=== PATIENT | female | born 1960 | race Caucasian/White ===

== ENCOUNTER 2019-08-29 22:44 | Emergency (ER) | payer SELFPAY ==
[~2019-08-29] VITALS: Ht 58 cm; Wt 57.6 kg
[2019-08-29] MEDS ORDERED: KETOROLAC 30 MG/ML VIAL IVP STA (23:15)
[2019-08-29] MEDS ORDERED: ACYCLOVIR 400 MG TABLET (ZOVIRAX) PO SCH (23:15)
[2019-08-29] MEDS: NS IV 1000 ML 1,000 ML IV SCH ×2 (23:20→23:22)
--- NOTE | 2019-08-29 23:33 | ED General ---
General Stated Complaint: LT SIDED PELVIC PAIN Source of Information: Patient History of Present Illness Date Seen by Provider: Aug 29, 2019 Time Seen by Provider: 22:55 Initial Comments PT ARRIVES VIA EMS FROM [facility] PT WITH MULTIPLE COMPLAINTS C/O NON-PRODUCTIVE COUGH SINCE YESTERDAY HAD SUBJECTIVE FEVER LAST PM PT HAS BEEN TAKING ADVIL PLUS ALEVE EVERY 3 HOURS SINCE YESTERDAY C/O LEFT FLANK PAIN, RADIATING TO LEFT GROIN AND INTO GENITAL AREA--PT'S MAIN COMPLAINT--SINCE YESTERDAY NO PROBLEMS URINATING OR HEMATURIA NO NAUSEA/VOMITING/DIARRHEA NO CHEST PAIN OR SHORTNESS OF BREATH NO PALPITATIONS NO DIZZINESS OR SYNCOPE NO HEADACHE NO BODY ACHES NO NASAL CONGESTION NO SORE THROAT PT STATES SHE LIVES IN [place], AND FLEW FROM [place] YESTERDAY, TO [place]--WENT TO [facility] [place] [facility] [employer] PICKED HER UP LAST NIGHT OR TODAY FROM [place] IN A RENTAL CAR, AND DROVE HERE 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 PT HAS HISTORY OF LUPUS, R.A., ASTHMA, HTN AND HEART DISEASE. PT STATES SHE STARTED VAPING 3 MONTHS AGO, CLAIMS SHE DID NOT SMOKE PRIOR TO THAT PT HAS HISTORY OF METH USE, CLAIMS NO IV USE OR RECENT USE. STATES SHE HAD PNEUMONIA WITH SEPSIS AND WAS ON VENTILATOR FOR 2 WEEKS, A COUPLE OF YEARS AGO Allergies and Home Medications Allergies Coded Allergies: CLEMENTE Inhibitors (Verified Allergy, Intermediate, Shortness of Breath, 08/29/19) Home Medications Azithromycin 500 Mg Tablet, 500 MG PO DAILY Prescribed by: PRIETO WOLFF on 08/30/19121 Nitrofurantoin Monohyd/M-Cryst 100 Mg Capsule, 1 TAB PO BID Prescribed by: PRIETO WOLFF on 08/30/19121 Pregabalin 75 Mg Capsule, 75 MG PO BID Prescribed by: PRIETO WOLFF on 08/30/19123 Valacyclovir HCl 1,000 Mg Tablet, 1,000 MG PO TID Prescribed by: PRIETO WOLFF on 08/30/19121 Patient Home Medication List Home Medication List Reviewed: Yes Review of Systems Review of Systems Constitutional: see HPI; No chills, No diaphoresis, No dizziness, No malaise, No weakness EENTM: no symptoms reported; No ear pain, No nose congestion, No throat pain Respiratory: see HPI, cough; No dyspnea on exertion, No orthopnea, No short of breath, No stridor, No wheezing Cardiovascular: no symptoms reported; No chest pain, No edema, No Hx of Intervention, No palpitations, No syncope Gastrointestinal: abdominal pain (LLQ); No constipation, No diarrhea, No loss of appetite, No nausea, No vomiting Genitourinary: no symptoms reported : No (MENOPAUSAL) Musculoskeletal: see HPI, back pain Skin: other (PT IS NOTED TO HAVE A MACULOPAPULAR/EARLY VESICULAR RASH IN L1 DERMATOME--THE EXACT AREA OF HER PAIN COMPLAINT--PT WAS UNAWARE THAT SHE HAD A RASH. ) Psychiatric/Neurological: No Symptoms Reported Hematologic/Lymphatic: No Symptoms Reported Immunological/Allergic: no symptoms reported Past Rmbvjkf-Otrpsl-Rskxmh Hx Past Med/Social Hx: Reviewed and Corrections made Patient Social History Alcohol Use: Occasionally Uses (HISTORY OF ABUSE, CLAIMS SHE ONLY DRINKS 3 DAYS A WEEK NOW) Recreational Drug Use: Yes (METH USE, DENIES IV USE) Drug of Choice: METH USE--DENIES IV USE Smoking Status: Current Everyday Smoker Type Used: Electronic/Vapor Past Medical History Surgeries: Yes (RIGHT KNEE SCOPE; CRYOTHERAPY OF CERVIX) Respiratory: Yes (PNEUMONIA WITH SEPSIS AND ON VENT X 2 WEEKS, COUPLE OF YEARS AGO) Asthma, Pneumonia Cardiac: Yes ("LAZY HEART" ) High Cholesterol, Hypertension Neurological: No Reproductive Disorders: Yes (CERVICAL CANCER/DYSPLASIA--TREATED WITH CRYOTHERAPY) 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 oz. kg; BMI Method: General Appearance: No Apparent Distress, WD/WN, Other (CONSTANT MOVEMENTS. DO ES NOT APPEAR TO BE ILL IN ANY WAY OR TO BE IN ANY DISCOMFORT OR DISTRESS. NO COUGH OR DYSPNEA AT ANY TIME. ) HEENT: PERRL/EOMI, TMs Normal, Normal ENT Inspection, Pharynx Normal Neck: Full Range of Motion, Normal Inspection, Non Tender, Supple Respiratory: Normal Breath Sounds, No Accessory Muscle Use, No Respiratory Distress Cardiovascular: Regular Rate, Rhythm, No Edema, No JVD, No Murmur, Normal Peripheral Pulses Gastrointestinal: Normal Bowel Sounds, No Organomegaly, No Pulsatile Mass, Soft, Tenderness (TENDERNESS TO LEFT FLANK, LEFT LOWER ABDOMEN AND GROIN AND PUBIC AREA--WITH OVERLYING MACULOPAPULAR, EARLY VESICULAR RASH IN THIS DISTRIBUTION--STARTING AT LOWER LUMBAR AREA ON LEFT. ) Back: No Vertebral Tenderness, Other ( ABOVE) Extremity: Normal Capillary Refill, Normal Inspection, Normal Range of Motion, Non Tender, No Calf Tenderness, No Pedal Edema Neurologic/Psychiatric: Alert, Oriented x3, No Motor/Sensory Deficits, Normal Mood/Affect, bioinformatician II-XII Norm as Tested Skin: Normal Color, Warm/Dry, Rash (MACULO-PAPULAR, EARLY VESICULAR RASH TO LEFT L1 DERMATOME), Tattoos/Piercings (MUJLTIPLE TATTOOS) Focused Exam Lactate Level 08/29/19 23:12: Lactic Acid Level 2.07*H Lactic Acid Level Progress/Results/Core Measures Suspected Sepsis SIRS Temperature: Pulse: Respiratory Rate: Laboratory Tests 08/29/19 23:12: White Blood Count 3.9L Blood Pressure / Mean: 08/29/19 23:12: Lactic Acid Level 2.07*H Laboratory Tests 08/29/19 23:12: Creatinine 1.00, INR Comment 0.9, Platelet Count 309, Total Bilirubin 0.1 Results/Orders Lab Results Laboratory Tests Test 08/29/19 23:12 08/29/19 23:37 Range/Units White Blood Count 3.9 L 4.3-11.0 10^3/uL Red Blood Count 3.47 L 4.35-5.85 10^6/uL Hemoglobin 10.8 L 11.5-16.0 G/DL Hematocrit 34 L 35-52 % Mean Corpuscular Volume 97 80-99 FL Mean Corpuscular Hemoglobin 31 25-34 PG Mean Corpuscular Hemoglobin Concent 32 32-36 G/DL Red Cell Distribution Width 14.9 H 10.0-14.5 % Platelet Count 309 130-400 10^3/uL Mean Platelet Volume 9.5 7.4-10.4 FL Neutrophils (%) (Auto) 55 42-75 % Lymphocytes (%) (Auto) 25 12-44 % Monocytes (%) (Auto) 12 0-12 % Eosinophils (%) (Auto) 7 0-10 % Basophils (%) (Auto) 1 0-10 % Neutrophils # (Auto) 2.2 1.8-7.8 X 10^3 Lymphocytes # (Auto) 1.0 1.0-4.0 X 10^3 Monocytes # (Auto) 0.5 0.0-1.0 X 10^3 Eosinophils # (Auto) 0.3 0.0-0.3 10^3/uL Basophils # (Auto) 0.0 0.0-0.1 10^3/uL Erythrocyte Sedimentation Rate 31 H 0-30 MM/HR Prothrombin Time 12.7 12.2-14.7 SEC INR Comment 0.9 0.8-1.4 Activated Partial Thromboplast Time 28 24-35 SEC D-Dimer 0.01 0.00-0.49 UG/ML Sodium Level 139 135-145 MMOL/L Potassium Level 3.7 3.6-5.0 MMOL/L Chloride Level 110 H 98-107 MMOL/L Carbon Dioxide Level 15 L 21-32 MMOL/L Anion Gap 14 5-14 MMOL/L Blood Urea Nitrogen 10 7-18 MG/DL Creatinine 1.00 0.60-1.30 MG/DL Estimat Glomerular Filtration Rate 57 BUN/Creatinine Ratio 10 Glucose Level 103 70-105 MG/DL Lactic Acid Level 2.07 *H 0.50-2.00 MMOL/L Calcium Level 8.6 8.5-10.1 MG/DL Corrected Calcium 8.6 8.5-10.1 MG/DL Magnesium Level 2.1 1.6-2.4 MG/DL Total Bilirubin 0.1 0.1-1.0 MG/DL Aspartate Amino Transf (AST/SGOT) 24 5-34 U/L Alanine Aminotransferase (ALT/SGPT) 17 0-55 U/L Alkaline Phosphatase 101 40-136 U/L Lactate Dehydrogenase 199 125-220 U/L Troponin I < 0.028 <0.028 NG/ML C-Reactive Protein High Sensitivity 1.05 H 0.00-0.50 MG/DL Total Protein 7.1 6.4-8.2 GM/DL Albumin 4.0 3.2-4.5 GM/DL Amylase Level 44 25-125 U/L Lipase 24 8-78 U/L Procalcitonin 0.03 <0.10 NG/ML Acetaminophen Level < 10 L 10-30 UG/ML Serum Alcohol 33 H <10 MG/DL Monoscreen NEGATIVE NEGATIVE Group A Streptococcus Screen NEGATIVE NEGATIVE Urine Color YELLOW Urine Clarity CLEAR Urine pH 5.5 5-9 Urine Specific Harwood <=1.005 1.016-1.022 Urine Protein NEGATIVE NEGATIVE Urine Glucose (UA) NEGATIVE NEGATIVE Urine Ketones NEGATIVE NEGATIVE Urine Nitrite POSITIVE H NEGATIVE Urine Bilirubin NEGATIVE NEGATIVE Urine Urobilinogen 0.2 < = 1.0 MG/DL Urine Leukocyte Esterase 1+ H NEGATIVE Urine RBC (Auto) NEGATIVE NEGATIVE Urine RBC NONE /HPF Urine WBC 0-2 /HPF Urine Squamous Epithelial Cells RARE /HPF Urine Crystals NONE /LPF Urine Bacteria MODERATE H /HPF Urine Casts NONE /LPF Urine Mucus NEGATIVE /LPF Urine Yeast FEW H /HPF Urine Culture Indicated YES Urine Opiates Screen POSITIVE H NEGATIVE Urine Oxycodone Screen NEGATIVE NEGATIVE Urine Methadone Screen NEGATIVE NEGATIVE Urine Propoxyphene Screen NEGATIVE NEGATIVE Urine Barbiturates Screen NEGATIVE NEGATIVE Ur Tricyclic Antidepressants Screen NEGATIVE NEGATIVE Urine Phencyclidine Screen NEGATIVE NEGATIVE Urine Amphetamines Screen NEGATIVE NEGATIVE Urine Methamphetamines Screen NEGATIVE NEGATIVE Urine Benzodiazepines Screen POSITIVE H NEGATIVE Urine Cocaine Screen NEGATIVE NEGATIVE Urine Cannabinoids Screen NEGATIVE NEGATIVE Micro Results Microbiology 08/29/19 Influenza Types A,B Antigen (LONNY) - Final, Complete My Orders Orders - PRIETO WOLFF DO Ed Iv/Invasive Line Start (08/29/19 23:15) Ekg Tracing (08/29/19 23:15) Monitor-Rhythm Ecg Trace Only (08/29/19 23:15) Acetaminophen (08/29/19 23:15) Alcohol (08/29/19 23:15) Amylase (08/29/19 23:15) Cbc With Automated Diff (08/29/19 23:15) Comprehensive Metabolic Panel (08/29/19 23:15) Drug Screen Stat (Urine) (08/29/19 23:15) Lactic Acid Analyzer (08/29/19 23:15) Lipase (08/29/19 23:15) Magnesium (08/29/19 23:15) Monotest (08/29/19 23:15) Protime With Inr (08/29/19 23:15) Partial Thromboplastin Time (08/29/19 23:15) Ua Culture If Indicated (08/29/19 23:15) Blood Culture (08/29/19 23:15) Influenza A And B Antigens (08/29/19 23:15) Troponin I (08/29/19 23:15) Ed Iv/Invasive Line Start (08/29/19 23:15) Ketorolac Injection (Toradol Injection) (08/29/19 23:15) Ferritin (08/29/19 23:15) Fibrin Degradation Products (08/29/19 23:15) Procalcitonin (Pct) (08/29/19 23:15) Hs C Reactive Protein (08/29/19 23:15) Erythrocyte Sedimentation Rate (08/29/19 23:15) LDH (08/29/19 23:15) Sputum Culture (08/29/19 23:15) Influenza A And B Antigens (08/29/19 23:15) Rapid Strep A Screen (08/29/19 23:15) Acyclovir Capsule/Tablet (Zovirax Caps (08/29/19 23:15) Ed Iv/Invasive Line Start (08/29/19 23:56) Lactated Ringers (Lr 1000 Ml Iv Solution (08/29/19 23:56) Ns Iv 1000 Ml (Sodium Chloride 0.9%) (08/29/19 23:56) Chest 1 View, Ap/Pa Only (08/30/19 00:01) Urine Culture (08/29/19 23:37) Rx-Nitrofurantoin [place] (Rx-Macrobid) (08/30/19 01:12) Azithromycin Tablet (Zithromax Tablet) (08/30/19 01:15) Medications Given in ED Current Medications Medications Dose Ordered Sig/Isaiah Route Start Time Stop Time Status Last Admin Dose Admin Azithromycin 500 mg ONCE ONCE PO 08/30/19 01:15 08/30/19 01:16 DC 08/30/19 01:45 500 MG Lactated Ringer's 1,000 ml @ 0 mls/hr Q0M ONCE IV 08/29/19 23:56 08/29/19 23:57 DC 08/29/19 23:20 1,000 MLS/HR Vital Signs/I&O 08/29/19 08/30/19 22:55 01:27 Temp 37.1 37.1 Pulse 90 90 Resp 18 18 B/P (MAP) 108/61 (77) 113/63 (77) Pulse Ox 96 96 O2 Delivery Room Air Room Air Capillary Refill : Progress Note : Progress Note O2 SATS 96-98% ON ROOM AIR AT ALL TIMES VITALS STABLE NO FEVER NO COUGH OR DYSPNEA OR RESPIRATORY SYMPTOMS OR COMPLAINTS OF ANY KIND DURING ER STAY AT DISMISSAL, PT EXTREMELY ARGUMENTATIVE AND BELLIGERENT AND WANTING PAIN MEDICATION ADVISED HER THAT HER PAIN WAS FROM SHINGLES AND ATTEMPTED TO EXPLAIN TO PT WHAT IT WAS AND WHY IT WAS CAUSING HER PAIN--SHE IS COMPLETELY UNWILLING TO LISTEN TO THIS ( PT'S UDS + FOR OPIATES, NOT A MEDICATION LISTED ON HER REGULAR HOME MEDICATIONS) SHE IS ALSO UNWILLING TO LISTEN TO MY INSTRUCTIONS REGARDING HER COVID-19 RISKS AND EXPLAINED 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 PT ALSO REFUSED TO WEAR HER MASK DURING ER STAY, SHE WAS REPEATEDLY INSTRUCTED PPE DONNED PRIOR TO ENTERING PT'S ROOM AND WORN AT ALL TIMES WHILE IN PT'S ROOM, OR ANY CONTACT WITH PT. Diagnostic Imaging Comments CXR--NO ACUTE PROCESS, PENDING RADIOLOGIST REVIEW Reviewed: Reviewed by Me Departure Impression Primary Impression: Herpes zoster Additional Impressions: UTI (urinary tract infection) COVID-19 P.U.I. Disposition: 01 HOME, SELF-CARE Condition: Stable Departure-Patient Inst. Patient Instructions: COVID19, Shingles (DC), Urinary Tract Infection, Adult (DC) Add. Discharge Instructions: SELF QUARANTINE YOURSELF AND ANY CONTACTS FOR THE NEXT 14 DAYS--NO ONE ENTERS OR LEAVES THE PLACE YOU ARE STAYING TYLENOL NEEDED FOR PAIN OR FEVER CHECK YOUR TEMP 3 TIMES A DAY FOR THE NEXT 14 DAYS LOTS OF CLEAR LIQUIDS CONTINUE YOUR REGULAR MEDICATIONS PRESCRIBED RETURN TO ER IF SYMPTOMS WORSEN Scripts Pregabalin (Lyrica) 75 Mg Capsule 75 MG PO BID for 10 Days, #20 CAP Prov: PRIETO WOLFF DO 08/30/19 Nitrofurantoin Monohyd/M-Cryst (Macrobid 100 mg Capsule) 100 Mg Capsule 1 TAB PO BID, #20 CAP Prov: PRIETO WOLFF DO 08/30/19 Valacyclovir HCl (Valtrex) 1,000 Mg Tablet 1000 MG PO TID for 10 Days, #30 TAB Prov: PRIETO WOLFF DO 08/30/19 Azithromycin (Zithromax) 500 Mg Tablet 500 MG PO DAILY for 5 Days, #5 TAB Prov: PRIETO WOLFF DO 08/30/19 PRIETO WOLFF DO Aug 29, 2019 23:33
[2019-08-29 23:47] LABS: BILIRUBIN,URINE NEGATIVE (NEGATIVE); CLARITY,URINE CLEAR; COLOR,URINE YELLOW; GLUCOSE, URINE (UA) NEGATIVE (NEGATIVE); KETONES,URINE NEGATIVE (NEGATIVE); LEUKOCYTE ESTERASE ,URINE 1+ (NEGATIVE); NITRITE,URINE POSITIVE (NEGATIVE); PH,URINE 5.5 (5-9); PROTEIN,URINE NEGATIVE (NEGATIVE)
[2019-08-29 23:50] LABS: BASOPHILS % (AUTO) 1 % (0-10); EOSINOPHILS # (AUTO) 0.3 10^3/uL (0.0-0.3); EOSINOPHILS % (AUTO) 7 % (0-10); HEMATOCRIT 34 % (35-52); HEMOGLOBIN 10.8 G/DL (11.5-16.0); LYMPHOCYTES % (AUTO) 25 % (12-44); MEAN CORPUSCULAR HEMOGLOBIN 31 PG (25-34); MEAN CORPUSCULAR HGB CONC 32 G/DL (32-36); MEAN CORPUSCULAR VOLUME 97 FL (80-99); MEAN PLATELET VOLUME 9.5 FL (7.4-10.4); MONOCYTES # (AUTO) 0.5 X 10^3 (0.0-1.0); MONOCYTES % (AUTO) 12 % (0-12); NEUTROPHILS # (AUTO) 2.2 X 10^3 (1.8-7.8); NEUTROPHILS % (AUTO) 55 % (42-75); PLATELET COUNT 309 10^3/uL (130-400); RED CELL DISTRIBUTION WIDTH 14.9 % (10.0-14.5); WHITE BLOOD COUNT 3.9 10^3/uL (4.3-11.0)
[2019-08-29] MEDS ORDERED: LACTATED RINGERS 1,000 ML IV ONE (23:56)
[2019-08-30] LABS: BACTERIA,URINE MODERATE /HPF; SQUAMOUS EPITHELIAL CELL,UR RARE /HPF; WBC,URINE 0-2 /HPF; YEAST,URINE FEW /HPF
[2019-08-30 00:03] LABS: AMPHETAMINE SCREEN, URINE NEGATIVE (NEGATIVE); BARBITURATE SCREEN URINE NEGATIVE (NEGATIVE); BENZODIAZEPINES SCREEN URINE POSITIVE (NEGATIVE); CANNABINOID SCREEN, URINE NEGATIVE (NEGATIVE); COCAINE SCREEN URINE NEGATIVE (NEGATIVE); METHADONE STAT NEGATIVE (NEGATIVE); METHAMPHETAMINE SCREEN URINE S NEGATIVE (NEGATIVE); OPIATE SCREEN URINE POSITIVE (NEGATIVE); OXYCODONE STAT NEGATIVE (NEGATIVE); PROPOXYPHENE STAT NEGATIVE (NEGATIVE); TRICYCLIC ANTIDEPRESSANTS SCRE NEGATIVE (NEGATIVE)
[2019-08-30 00:06] LABS: ACETAMINOPHEN < 10 UG/ML (10-30); ALANINE AMINOTRANSFERASE 17 U/L (0-55); ALKALINE PHOSPHATASE 101 U/L (40-136); AMYLASE 44 U/L (25-125); BILIRUBIN,TOTAL 0.1 MG/DL (0.1-1.0); BUN/CREATININE RATIO 10; CALCIUM 8.6 MG/DL (8.5-10.1); CARBON DIOXIDE 15 MMOL/L (21-32); CHLORIDE 110 MMOL/L (98-107); GFR ESTIMATED 57; GLUCOSE 103 MG/DL (70-105); LIPASE 24 U/L (8-78); MAGNESIUM 2.1 MG/DL (1.6-2.4); POTASSIUM 3.7 MMOL/L (3.6-5.0); SODIUM 139 MMOL/L (135-145); TOTAL PROTEIN 7.1 GM/DL (6.4-8.2)
[2019-08-30 00:13] LABS: PROTHROMBIN TIME PATIENT 12.7 SEC (12.2-14.7)
[2019-08-30 00:14] LABS: FIBRIN DEGRADATION PRODUCTS 0.01 UG/ML (0.00-0.49); INR 0.9 (0.8-1.4)
[2019-08-30 00:42] LABS: ERYTHROCYTE SEDIMENTATION RATE 31 MM/HR (0-30)
[2019-08-30] MEDS ORDERED: RX-NITROFURANTOIN 100 MG (MACROBID) CAP PPK#2 PO STA (01:12)
[2019-08-30] MEDS ORDERED: AZITHROMYCIN 250 MG TAB (ZITHROMAX) PO ONE (01:15)
[2019-08-30] MEDS ORDERED: VALA10004 PO (01:22)
[2019-08-30] MEDS ORDERED: NITR-65 PO (01:22)
[2019-08-30] MEDS ORDERED: AZIT500T PO (01:22)
[2019-08-30] MEDS ORDERED: PREG75CA PO (01:24)
[2019-08-30 01:27] VITALS: BP 113/63
--- NOTE | 2019-08-30 06:50 | Diagnostic Imaging Report ---
INDICATION: Cough and congestion COMPARISON: None available TECHNIQUE: Single frontal radiograph of the chest dated 08/30/2019. FINDINGS: The cardiac silhouette is within normal limits in size. No significant pulmonary vascular congestion. The lungs are clear. No pleural effusion. No pneumothorax. No acute osseous abnormality. IMPRESSION: No acute cardiopulmonary abnormality. Dictated by: Dictated on workstation # [id number]
== END 2019-08-30 01:27 | disposition home or self-care (01) ==
LOC: ER 22:46
DX: B02.9 Zoster without complications (principal); N39.0 Urinary tract infection, site not specified; R05 Cough; M32.9 Systemic lupus erythematosus, unspecified; M06.9 Rheumatoid arthritis, unspecified; J45.909 Unspecified asthma, uncomplicated; I10 Essential (primary) hypertension; E78.00 Pure hypercholesterolemia, unspecified; M10.9 Gout, unspecified; Z85.41 Personal history of malignant neoplasm of cervix uteri; F17.290 Nicotine dependence, other tobacco product, uncomplicated
CPT/HCPCS: 36415; 71045; 80053; 80306; 80320; 80329; 81000; 82150; 82728; 83605; 83615; 83690; 83735; 84145; 84484; 85025; 85379; 85610; 85652; 85730; 86141; 86308; 87040; 87077; 87088; 87430; 87635; 87804; 93041